=== PATIENT | male | born 1985 | race Caucasian/White ===

== ENCOUNTER 2022-01-16 06:46 | Emergency (ER) | payer OTHER ==
[~2022-01-16] VITALS: Ht 182.9 cm; Wt 90.7 kg
[2022-01-16] MEDS ORDERED: BACTRIM DS TAB1 EACH PO (07:40)
--- OUTSIDE RECORDS SUMMARY | 2022-01-16 08:54 | XMS ---
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 Ksenia has no Care Guidelines for this patient. Domenico VISIT COUNT (12 MO.) 1 ARACELI Carroll TOTAL 1 NOTE: Visits indicate total known visits. ED/UCC VISIT TRACKING (12 MO.) 01/16/2022 06:49 ARACELI Roque [place] TYPE: Emergency COMPLAINT: - L ARM/ELBOW PAIN INPATIENT VISIT TRACKING (12 MO.) No inpatient visits to display in this time frame [email or web address]
== END 2022-01-16 08:15 | disposition home or self-care (01) ==
LOC: ED 06:46
DX: M70.22 Olecranon bursitis, left elbow (principal)
CPT/HCPCS: 96374; 99283-25; A9270; J1885

== ENCOUNTER 2022-11-21 15:34 | Emergency (ER) | payer SELFPAY ==
[~2022-11-21] VITALS: Ht 182.9 cm; Wt 90.7 kg
[~2022-11-21 15:34] MED LIST: BACTRIM DS TAB1 EACH PO
--- OUTSIDE RECORDS SUMMARY | 2022-11-21 15:37 | XMS ---
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 - 2 Visits in 30 Days - 6 ED Visits in 6 Months CARE PROVIDERS There are no care providers on record at this time. Ksenia has no Care Guidelines for this patient. Domenico VISIT COUNT (12 MO.) 2 [facility] 4 [facility] T[facility] 8 NOTE: Visits indicate total known visits. ED/C VISIT TRACKING (12 MO.) 11/21/2022 15:35 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 Anxiety disorder, unspecified 2. 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 Other chest pain 1. Anxiety disorder, unspecified 2. Contact with and (suspected) exposure to COVID-19 3. Personal history of nicotine dependence 05/20/2022 19:32 [facility] Adam [place] TYPE: Emergency DIAGNOSES: - Substance Abuse - Procedure and treatment not carried out due to patient leaving prior to being seen by health care provider - chest pain 01/16/2022 06:49 ARACELI Parks TYPE: Emergency COMPLAINT: - L ARM/ELBOW PAIN DIAGNOSES: - Other specified soft tissue disorders - Olecranon bursitis, left elbow INPATIENT VISIT TRACKING (12 MO.) No inpatient visits to display in this time frame [id number]
== END 2022-11-22 14:31 | disposition home or self-care (01) ==
LOC: ED 15:34
DX: R45.1 Restlessness and agitation (principal); F15.10 Other stimulant abuse, uncomplicated; Z20.822 Contact with and (suspected) exposure to COVID-19
CPT/HCPCS: 36415; 80053; 81003; 84443; 85025; 87502; 96372; 99285; C9803; G0480; J1200; J1630; J2060; U0003